=== PATIENT | female | born 1995 | race African-American/Black ===

== ENCOUNTER 2019-11-20 07:51 | Inpatient (IN) ==
[2019-11-20] MEDS ORDERED: OXYTOCIN 30 UNITS/500 ML BAG IV PRN ×2 (08:10→08:54)
--- NOTE | 2019-11-20 08:14 | History & Physical Report ---
Date of Service November 20, 2019 Assessment & Plan (1) Elective induction of labor planned: 24 yo F presenting for IOL at 39 weeks for IUGR. Doing well and without complaints today. - Labor plan includes with epidural, anesthesia consult placed. - Pt is GBS negative. - For augmentation of labor with Guillen bulb, Pitocin, likely ROM later today. (2) IUGR (intrauterine growth restriction) affecting care of mother: - As above. (3) Epilepsy affecting : - patient without seizures for 10 years without epileptic medications. - continue to monitor while laboring. History of Present Illness Chief Complaint: induction of labor Primary Care Provider: LISANDRO PCP Guera is a 24 yo ; EDC 11/27/2019; for induction of labor today for IUGR. Patient has a history of ovarian cyst, last largest measured 6.6 cm but this was spontaneous. Also with a history of epilepsy but has not been on medications nor had a seizure in 10 years. Complications with IUGR this , MFM consulted and pt was TORCH/cfDNA negative. Last DVP/UAD within normal limits. Reports intermittent, non-timeable contractions for about 40 minutes overnight, confirms movement; no fluid loss; no vaginal bleeding. Was unable to receive Guillen bulb yesterday PM due to L+D being full. Labor plan includes epidural but would like to "hold off" as soon as possible. Labs: Blood type: O+ Antibody screen: negative Hgb: 10.5 Hct: 32.8% WBC: 5.77 Plt: 249 Rubella status: immune VDLR/RPR: non-reactive Gonorrhea: negative Chlamydia: negative HIV: negative GBS: negative HbSAg: negative Glucose tolerance test x2: normal Allergies Allergy/AdvReac Type Severity Reaction Status Date / Time No Known Allergies Allergy Verified 11/19/19 14:39 Home Medications Home Medications Medication Instructions Recorded Confirmed Type prenat.vits,jaxson,heb-acnk-glwlr 1 tab PO DAILY 04/12/19 11/20/19 History Patient History Medical History Encounter for supervision of normal in multigravida, antepartum Epilepsy History of chicken pox History of umbilical hernia Polyhydramnios affecting Surgical History S/P tonsillectomy S/P wisdom tooth extraction Family History Grandfather (Maternal) Diabetes Hypertension Mother Diabetes Social History Preferred Language: Kinyarwanda Communication Ability: Effective [employer] Internship Required: No Beliefs That Will Affect Care: None marital status: marital status details: Jarvis Heath (24) [phone] Current Living Situation: Family Current Living Situation Comment: Lives with and 3 year old son Jacob current occupational status: unemployed Other Information That Helps Us Care for You: No Feels Safe at Home: Yes Safety Concerns: Feels Safe At This Time Smoking Status: Never smoker Do You Dip or Chew Tobacco: No ; Second Hand Exposure: No ; Tobacco Cessation Education Requested by Patient: No Hx Alcohol Use: No Hx Substance Use: No Review of Systems Constitutional: denies fever, chills, sweats, headache Respiratory: denies SOB, difficulty breathing Cardiac: denies CP, chest palpitations, chest pressure Breast: denies breast pain : denies dysuria Physical Exam Physical Exam: General: patient is alert and oriented, in NAD Cardiac: +S1/S2, no murmurs rubs or gallops Respiratory: lungs CTA b/l, anteriorly and posteriorly, no wheezes rales or rhonchi, no increased work of breathing, symmetric chest rise, no respiratory distress Abdomen: Gravid, fundal height is term, + FHTs, baby is presenting vertex, no palpable contractions, EFW 6-7 lbs Uterus: uterine fundus firm Lower Extremities: no LE edema or swelling, no deep calf pain, Demetrio's sign negative b/l Genitourinary: Manual OB Exam: + cervical dilation fingertip, + cervical effacement (long) and + station high OB Exam Monitor Tracing: + external FHT monitor used, + external uterine monitor used and + normal FHT variability Monitoring External Monitor HR 150s with good variability Tocodynamometer no timeable contractions Supervising Physician Co-Signing Physician Notes Resident Physician Supervision Note: I was present with Dr. Jade during the history and exam. I discussed the case with the resident and agree with the findings and plan as documented in the note. Any exceptions or clarifications are listed here: 24yo with planned induction for h/o IUGR at 39wks today. Testing in office has been good. No evidence of labor. Unfavorable cx at term. RHpos, RI, GBS neg. EFW 10% at last us on 10/29/19(AC% 3). EFW today 6-7#. She did see MFM in this for consult. Please see labor progress note for guillen ripening procedure note. Will plan pitocin for induction as well. bedside us confirms cephalic presentation. sve ft/l/high/post/med. FHTs categ 1. Documented By: Justina Ren MD, FACOG Resident Activity Tracking Resident Involvement: Resident Care Provided Care Provided: OB Delivery (1) Epilepsy affecting Trimester: unspecified trimester Qualified Code(s): O99.350 - Diseases of the nervous system complicating , unspecified trimester; G40.909 - Epilepsy, unspecified, not intractable, without status epilepticus (2) IUGR (intrauterine growth restriction) affecting care of mother Fetus number: single or unspecified fetus Trimester: unspecified trimester Qualified Code(s): O36.5990 - Maternal care for other known or suspected poor growth, unspecified trimester, not applicable or unspecified
[2019-11-20 08:29] LABS: Hematocrit (blood only) 32.8 % (37-47); Hemoglobin 10.5 g/dL (12.0-16.0); Mean Corpuscular Hemoglobin 24.2 pg (25-34); Mean Corpuscular Volume 75.6 fL (80-100); Platelet Count 249 K/uL (130-400); RDW Coefficient of Variation 16.3 % (11.5-14.5); RDW Standard Deviation 44.8 fL (36.4-46.3); Red Blood Count 4.34 M/uL (4.2-5.4); White Blood Count 5.77 K/uL (4.8-10.8)
[2019-11-20] MEDS: LACTATED RINGER'S 1,000 ML IV PRN ×2 (09:13→13:50)
--- NOTE | 2019-11-20 09:28 | Labor Progress Brief Note ---
Date of Service November 20, 2019 Subjective This is procedure note for guillen ripening balloon Assessment & Plan (1) IUGR (intrauterine growth restriction) affecting care of mother: Fetus number: single or unspecified fetus Trimester: unspecified trimester Qualified Code(s): O36.5990 - Maternal care for other known or suspected poor growth, unspecified trimester, not applicable or unspecified (2) 39 weeks gestation of : (3) Unfavorable cervix in term : (4) Encounter for induction of labor: guillen ripening balloon placed after informed consult for mechanical dilation with plannd induction for IUGR. Physical Exam Constitutional: WD/WN, vitals as above Genitourinary: OB Exam Abdomen: + estimated weight (6-7# cephalic by us) Manual OB Exam: + cervical dilation fingertip, + cervical effacement (long) and + station (high) OB Exam Monitor Tracing: + external FHT monitor used (150, mod variability, reactive), + external uterine monitor used (no regular ctx. ) and + category I PROCEDURE: spec placed after informed consent obtained. cx grasped on ant lip with ring forcep. guillen through os and balloon inflated with 40cc sterile water. spec removed. guillen taped to leg on traction. pt mahamed well. Results & Data Vital Signs (Past 12 Hours) Vital Signs Temp Pulse Resp BP 11/20/19 08:23 99.1 F 117 H 18 119/61 11/20/19 08:14 117 H 119/61 11/20/19 08:12 123 H 117/63 Coding Level of Care Code None Diagnoses IUGR (intrauterine growth restriction) affecting care of mother O36.5990 Fetus number: single or unspecified fetus Trimester: unspecified trimester 39 weeks gestation of Z3A.39 Unfavorable cervix in term O34.40 Encounter for induction of labor Z34.90 CPT Codes Guillen Bulb Placement for Cervical Ripening - [id number] ([id number])
--- NOTE | 2019-11-20 12:47 | Labor Progress Brief Note ---
Date of Service November 20, 2019 Subjective Reason For Note: Routine Evaluation pt feeling contractions. considering epidural Assessment & Plan (1) 39 weeks gestation of : (2) IUGR (intrauterine growth restriction) affecting care of mother: Fetus number: single or unspecified fetus Trimester: unspecified trimester Qualified Code(s): O36.5990 - Maternal care for other known or suspected poor growth, unspecified trimester, not applicable or unspecified (3) Encounter for induction of labor: cannot even examine pt, very intolerant of exams, brings knees tightly together and cannot tolerate even touching introitus. asked what we could do to help. offered epidural now given that is her ultimate plan and she agrees to get now. will plan exam after hopefully more comfortable. Physical Exam Constitutional: WD/WN, vitals as above Neurologic: grossly normal Psychiatric: A+Ox3, euthymic affect Genitourinary: Manual OB Exam: + cervical dilation (unable to tolerate exam, can't even advance fingers past introitus) OB Exam Monitor Tracing: + external FHT monitor used (135 mod variability), + external uterine monitor used (q2-3 pit @11), + category I and + normal FHT variability Results & Data Vital Signs (Past 12 Hours) Vital Signs Temp Pulse Resp BP 11/20/19 12:00 72 107/73 11/20/19 08:23 99.1 F 117 H 18 119/61 11/20/19 08:14 117 H 119/61 11/20/19 08:12 123 H 117/63 Coding Level of Care Code None Diagnoses 39 weeks gestation of Z3A.39 IUGR (intrauterine growth restriction) affecting care of mother O36.5990 Fetus number: single or unspecified fetus Trimester: unspecified trimester Encounter for induction of labor Z34.90
[2019-11-20] MEDS ORDERED: BUPIVACAINE 0.25% 30 ML VIAL ONE (12:53)
[2019-11-20] MEDS ORDERED: ePHEDrine sulfate 50 MG/ML AMP ONE (12:53)
[2019-11-20] MEDS ORDERED: fentaNYL citrate 100 MCG/2 ML VIAL ONE (12:54)
[2019-11-20] MEDS ORDERED: fentaNYL 2MCG/ML ROPIV 1.25MG/ML 100 ML BAG EPI ONE (12:54)
--- NOTE | 2019-11-20 13:02 | Anesthesiology Consultation ---
Date of Service November 20, 2019 Assessment & Plan Chart Review Chart Review: Patient NOT seen in Pre Admission Testing and Acceptable Risk for Labor Epidural Consults Requested none ASA ASA2 Proposed Anesthesia Anesthesia Type: Labor Epidural Risk / Benefits Reviewed With: PT / POA / Parent / Guardian, Accepts Plan and Informed Consent Obtained History Height/Weight Height: 5 ft Weight: 92.986 kg Allergies Allergy/AdvReac Type Severity Reaction Status Date / Time No Known Allergies Allergy Verified 11/19/19 14:39 Medications Home Medications Medication Instructions Recorded Confirmed Last Taken prenat.vits,jaxson,byf-xqwc-qjwxz 1 tab PO DAILY 04/12/19 11/20/19 Unknown Active Medications Generic Name Dose Route Start Last Admin Trade Name Freq PRN Reason Stop Dose Admin Lactated Ringer's 1,000 mls @ 125 mls/hr 11/20/19 08:10 11/20/19 12:43 Lr IV 11/22/19 08:09 999 mls/hr .Q8H PRN Infusion L&D Protocol Protocol Oxytocin 30 units in 500 mls @ 11 mls/hr 11/20/19 08:54 11/20/19 12:15 Pitocin IV 11/22/19 08:53 0.66 units/hr .Q24H PRN 11 mls/hr Labor Induction/Augmentation Titration Protocol 0.66 UNITS/HR NPO Date Last Intake of Fluids: 11/20/19 Time Last Intake of Fluids: 13:13 Date Last Intake of Solids: 11/20/19 Time Last Intake of Solids: 06:30 Past Medical History Medical History Epilepsy History of chicken pox History of umbilical hernia Exercise / Class Metabolic Activity II 4-5 Yardwork/Stairs/Walk up hill Past Family History Family History Grandfather (Maternal) Diabetes Hypertension Mother Diabetes Past Surgical History Surgical History S/P tonsillectomy S/P wisdom tooth extraction Past Anesthesia History No Hx of Anesthesia Complications History of PONV No Hx of PONV Social History Smoking Status: Never smoker Do You Dip or Chew Tobacco: No Hx Alcohol Use: No Hx Substance Use: No Review of Systems Patient denies history of abnormal bleeding or bleeding disorder. Patient denies active use of anticoagulants other than low dose aspirin. Negative for chest pain or shortness of breath. Patient denies numbness, tingling or weakness in lower extremities. Physical Exam Vital Signs Last Vital Signs Temp 37.3 C 11/20/19 08:23 Pulse 82 11/20/19 13:14 Resp 18 11/20/19 08:23 BP 122/80 11/20/19 13:14 Pulse Ox 100 11/20/19 13:14 Constitutional not obese gravid uterus ENMT Mouth: no TMJ abnormality and oral opening not small Thyromental Distance: > or= 3.5 Finger Breadths Mallampati Class: III Neck normal visual inspection; neck extension not limited Respiratory normal respiratory effort Auscultation: lungs clear to auscultation bilaterally Cardiovascular Rate/Rhythm: regular rate and regular rhythm Heart Sounds: no murmur Neurologic moves all extremities Psychiatric Orientation: alert and oriented x 3 Testing Laboratory Results 11/20/19 08:19
[2019-11-20] MEDS ORDERED: ONDANSETRON INJ 2 MG/ML 2 ML VIAL IV PRN ×3 (13:57→18:54)
[2019-11-20] MEDS ORDERED: NALOXONE HCL 1 MG in SODIUM CHLORIDE 0.9% 1000ML 1,000 ML IV PRN ×2 (13:57→18:45)
[2019-11-20] MEDS ORDERED: ePHEDrine sulfate 50 MG/ML AMP IV PRN ×2 (13:57→18:45)
[2019-11-20] MEDS ORDERED: NALOXONE HCL 0.4 MG/1 ML VIAL/CARP IV PRN ×2 (13:57→18:45)
[2019-11-20] MEDS ORDERED: NALBUPHINE HCL INJ 10 MG/ML AMP IV PRN ×2 (13:57→18:45)
[2019-11-20] MEDS ORDERED: DiphenhydrAMINE HCL 50 MG/ML VIAL IV PRN (13:57)
[2019-11-20] MEDS ORDERED: fentaNYL 2MCG/ML ROPIV 1.25MG/ML 100 ML BAG EPI PRN (13:57)
--- NOTE | 2019-11-20 14:20 | Labor Progress Brief Note ---
Date of Service November 20, 2019 Subjective Reason For Note: Routine Evaluation now comfortable with epidural. guillen balloon fell out about 130pm Assessment & Plan (1) 39 weeks gestation of : (2) Encounter for induction of labor: (3) IUGR (intrauterine growth restriction) affecting care of mother: need to cont to increase pitocin to keep pattern regular. station too high to attempt arom, will see how that improves with time, may need to consider needle arom eventually but feel we can improve pattern as option first with better titration of pitocin. fetus categ 1. if srom, needs cx check by nursing kathya, nursing made aware. pt and partner aware of findings and plan and deny further questions. Fetus number: single or unspecified fetus Trimester: unspecified trimester Qualified Code(s): O36.5990 - Maternal care for other known or suspected poor growth, unspecified trimester, not applicable or unspecified Physical Exam Constitutional: WD/WN, vitals as above Psychiatric: A+Ox3, euthymic affect Genitourinary: Manual OB Exam: + cervical dilation 4 cm, + cervical effacement 50% and + station high OB Exam Monitor Tracing: + external FHT monitor used (130 mod variability reactive .), + external uterine monitor used (q1-4, pit at 13), + category I and + normal FHT variability Results & Data Vital Signs (Past 12 Hours) Vital Signs Temp Pulse Resp BP Pulse Ox 11/20/19 14:14 92 H 99 11/20/19 14:13 91 H 107/64 11/20/19 14:09 88 99 11/20/19 14:08 88 104/66 11/20/19 14:06 96 H 103/64 11/20/19 14:04 102 H 107/62 99 11/20/19 14:02 77 109/62 11/20/19 14:00 100 H 107/71 11/20/19 13:59 97 H 100 11/20/19 13:58 91 H 102/60 11/20/19 13:56 88 111/65 11/20/19 13:54 85 104/57 L 99 11/20/19 13:52 92 H 111/68 11/20/19 13:50 96 H 112/64 11/20/19 13:49 84 99 11/20/19 13:48 96 H 111/68 11/20/19 13:46 94 H 114/72 11/20/19 13:44 115 H 116/64 99 11/20/19 13:42 99 H 123/74 11/20/19 13:40 87 125/73 11/20/19 13:39 90 98 11/20/19 13:38 100 H 108/77 11/20/19 13:36 93 H 118/77 11/20/19 13:34 81 117/69 99 11/20/19 13:32 90 115/69 11/20/19 13:29 81 99 11/20/19 13:28 90 122/75 11/20/19 13:26 103 H 127/81 11/20/19 13:24 95 H 120/80 99 11/20/19 13:22 98 H 129/82 11/20/19 13:20 86 119/84 11/20/19 13:19 91 H 99 11/20/19 13:14 82 122/80 100 11/20/19 12:00 72 107/73 11/20/19 08:23 99.1 F 117 H 18 119/61 11/20/19 08:14 117 H 119/61 11/20/19 08:12 123 H 117/63 Coding Level of Care Code None Diagnoses 39 weeks gestation of Z3A.39 Encounter for induction of labor Z34.90 IUGR (intrauterine growth restriction) affecting care of mother O36.5990 Fetus number: single or unspecified fetus Trimester: unspecified trimester
[2019-11-20] MEDS ORDERED: LIDOCAINE/EPINEPHRINE 2% 1:200,000 20 ML SDV ONE (17:20)
[2019-11-20] MEDS ORDERED: OXYTOCIN 10 UNITS/ML VIAL ONE ×2 (17:22→18:29)
[2019-11-20] MEDS ORDERED: MoRPHine SULFATE PF 1 MG/ML 10 ML AMP/VIAL ONE (17:22)
--- NOTE | 2019-11-20 17:25 | Labor Progress Brief Note ---
Date of Service November 20, 2019 Subjective Reason For Note: Routine Evaluation pt comfortable, pit at 19 Assessment & Plan (1) 39 weeks gestation of : (2) IUGR (intrauterine growth restriction) affecting care of mother: Fetus number: single or unspecified fetus Trimester: unspecified trimester Qualified Code(s): O36.5990 - Maternal care for other known or suspected poor growth, unspecified trimester, not applicable or unspecified (3) Encounter for induction of labor: (4) malpresentation: cephalic by u/s yest and again today. now breech, despite pitocin which was used to try to bring cephalic into pelvis. I am concerned for srom and need for emergency c/s. rec c/s now. partner and pt discussed and asked about delaying surgery. i do not recommend as would be controlled right now but if srom, then risk for cord prolapse and compromise or . rec moving toward c/s kathya and pt and partner agree. consent reviewed and signed. or and peds notified. Physical Exam Constitutional: WD/WN, vitals as above Genitourinary: Manual OB Exam: + cervical dilation 4 cm, + cervical effacement 80% and + station high OB Exam Monitor Tracing: + external FHT monitor used (130 mod variability), + external uterine monitor used (q2-3), + category I and + normal FHT variability presenting part not palpable. bedside us now with breech presentation, pit stopped. Results & Data Vital Signs (Past 12 Hours) Vital Signs Temp Pulse Resp BP Pulse Ox 11/20/19 17:19 88 100 11/20/19 17:18 90 116/82 11/20/19 17:14 83 99 11/20/19 17:09 89 99 11/20/19 17:04 79 98 11/20/19 16:59 79 96/55 L 99 11/20/19 16:54 84 132/56 L 98 11/20/19 16:49 86 98 11/20/19 16:48 81 101/59 L 11/20/19 16:44 89 99 11/20/19 16:43 90 98/63 L 11/20/19 16:39 90 101/59 L 99 11/20/19 16:34 78 104/65 99 11/20/19 16:29 85 99 11/20/19 16:28 80 98/64 L 11/20/19 16:24 88 99 11/20/19 16:23 75 103/66 11/20/19 16:19 76 114/57 L 98 11/20/19 16:16 82 110/71 11/20/19 16:14 80 99 11/20/19 16:09 80 98 11/20/19 16:04 77 101/62 99 11/20/19 15:59 98 H 99 11/20/19 15:58 86 113/72 11/20/19 15:54 98 H 99 11/20/19 15:49 81 98 11/20/19 15:48 75 105/60 11/20/19 15:45 95 H 95/61 L 11/20/19 15:44 91 H 99 11/20/19 15:40 86 101/57 L 11/20/19 15:39 88 99 11/20/19 15:34 89 98/54 L 99 11/20/19 15:29 82 117/61 99 11/20/19 15:24 84 98 11/20/19 15:23 85 97/58 L 11/20/19 15:20 82 93/56 L 11/20/19 15:19 83 98 11/20/19 15:14 71 97 11/20/19 15:13 86 95/57 L 11/20/19 15:09 89 97/55 L 98 11/20/19 15:04 74 18 93/59 L 98 11/20/19 14:59 82 98 11/20/19 14:58 78 93/59 L 11/20/19 14:54 72 97 11/20/19 14:53 88 96/64 L 11/20/19 14:49 70 18 99/61 L 98 11/20/19 14:44 86 98 11/20/19 14:43 90 100/60 11/20/19 14:40 72 102/55 L 11/20/19 14:39 74 98 11/20/19 14:34 96 H 18 98/54 L 99 11/20/19 14:29 74 98 11/20/19 14:28 82 101/66 11/20/19 14:24 85 99 11/20/19 14:23 96 H 100/64 11/20/19 14:19 77 16 95/53 L 99 11/20/19 14:14 92 H 99 11/20/19 14:13 91 H 107/64 11/20/19 14:09 88 99 11/20/19 14:08 88 18 104/66 11/20/19 14:06 96 H 103/64 11/20/19 14:04 102 H 107/62 99 11/20/19 14:02 77 18 109/62 11/20/19 14:00 100 H 107/71 11/20/19 13:59 97 H 100 11/20/19 13:58 91 H 102/60 11/20/19 13:56 88 18 111/65 11/20/19 13:54 85 104/57 L 99 11/20/19 13:52 92 H 111/68 11/20/19 13:50 96 H 112/64 11/20/19 13:49 84 99 11/20/19 13:48 96 H 111/68 11/20/19 13:46 94 H 114/72 11/20/19 13:44 115 H 116/64 99 11/20/19 13:42 99 H 123/74 11/20/19 13:40 87 125/73 11/20/19 13:39 90 98 11/20/19 13:38 100 H 108/77 11/20/19 13:36 93 H 118/77 11/20/19 13:34 81 117/69 99 11/20/19 13:32 90 115/69 11/20/19 13:29 81 99 11/20/19 13:28 90 122/75 11/20/19 13:26 103 H 127/81 11/20/19 13:24 95 H 120/80 99 11/20/19 13:22 98 H 129/82 11/20/19 13:20 86 119/84 11/20/19 13:19 91 H 99 11/20/19 13:14 97.5 F L 82 18 122/80 100 11/20/19 12:00 72 107/73 11/20/19 08:23 99.1 F 117 H 18 119/61 11/20/19 08:14 117 H 119/61 11/20/19 08:12 123 H 117/63 Coding Level of Care Code None Diagnoses 39 weeks gestation of Z3A.39 IUGR (intrauterine growth restriction) affecting care of mother O36.5990 Fetus number: single or unspecified fetus Trimester: unspecified trimester Encounter for induction of labor Z34.90 malpresentation O32.9XX0
[2019-11-20] MEDS ORDERED: LACTATED RINGER'S 1,000 ML IV SCH ×2 (17:30→19:00)
[2019-11-20] MEDS ORDERED: CEFAZOLIN 2000MG 2,000 MG/15 ML SYR IV ONE (17:30)
[2019-11-20] MEDS ORDERED: CITRIC ACID/SODIUM CITRATE 15 ML UDC PO SCH (17:45)
[2019-11-20] MEDS ORDERED: ONDANSETRON INJ 2 MG/ML 2 ML VIAL ONE (18:21)
[2019-11-20] MEDS ORDERED: SODIUM CHLORIDE 0.9% INJ 10 ML VIAL ONE (18:29)
[2019-11-20 18:45] LABS: Base Excess Cord Arterial Bld -2.4 mEq/L (-9-1.8); CO2 Cord Arterial Blood 50 mmHg (39.1-73.5); HCO3 Cord Arterial Blood 24 mmol/L (19.7-28.5); PO2 Cord Arterial Blood 24 mmHg (4.1-31.7)
[2019-11-20] MEDS ORDERED: NO NARCOTICS OR SEDATIVES SCH (18:45)
[2019-11-20] MEDS ORDERED: NALOXONE HCL 0.08 MG in SYRINGE 1.8 ML IV PRN (18:45)
[2019-11-20] MEDS ORDERED: SODIUM CHLORIDE 0.9% 1000ML 1,000 ML IV SCH (18:45)
[2019-11-20] MEDS ORDERED: ACETAMINOPHEN 1000 MG/100 ML IV IV PRN (18:45)
[2019-11-20] MEDS ORDERED: HYDROmorphone INJ 0.5 MG/0.5 ML SYR IV PRN (18:45)
[2019-11-20] MEDS ORDERED: LACTATED RINGER'S 500 ML IV PRN (18:45)
[2019-11-20] MEDS ORDERED: MoRPHine SULFATE PF 1 MG/ML 10 ML AMP/VIAL INT SPINAL ONE (18:45)
[2019-11-20] MEDS ORDERED: DC INTRASPINAL MORPHINE SCH (18:45)
[2019-11-20] MEDS ORDERED: ARISTA ABSORBABLE HEMOSTAT 3GM TOP ONE (18:47)
[2019-11-20 18:51] LABS: Base Excess Cord Venous Blood -2.4 mEq/L (-7.7-1.9); Cord Venous Blood HCO3 22 mmol/L (18.4-26.8); Cord Venous Blood PCO2 38 mmHg (30.4-57.2); Cord Venous Blood PO2 35 mmHg (14.1-43.3); Cord Venous Blood pH 7.38 (7.20-7.44)
[2019-11-20 18:52] LABS: Oxygen Sat Cord Arterial Blood < 60.0 % (<60)
--- NOTE | 2019-11-20 18:52 | Post Operative Brief Note ---
PG Immediate Post Op with CF Date of Surgery November 20, 2019 Pre & Post Diagnosis Operation Date: 11/20/19 17:45 Pre-Op Diagnosis: 39 week gestation IUP IUGR. Induction of labor. variable presentation. Post-Op Diagnosis: Same as above. delivery of live male adrian at 1817. I identified the patient and participated in the time-out.: Yes Procedure Operation Date: 11/20/19 17:45 Actual Procedures Primary Low Transverse Section Surgeon Justina Ren MD, FACOG Cloth Finishing Range Operator Chief Maria Guadalupe Estimated Blood Loss 500 Findings Consistent with Post-Op Diagnosis (viable male, delivered double footling breech. normal uterus, tubes and ovaries bilaterally. ) Fluids 1000 Specimens Specimen Description: A: Placenta: exam B: Cord Blood C: Cord gasses Drains Patricio Catheter (draining clear urine durine procedure) Anesthesia Type Labor Epidural Complications none Disposition Accompanied Patient To Recovery: No Disposition: Recovery Room
[2019-11-20] MEDS ORDERED: DIPHTHERIA/TETANUS/PERTUSSIS 0.5 ML SYR/VIAL IM ONE (18:54)
[2019-11-20] MEDS ORDERED: PROMETHAZINE HCL 25 MG in SODIUM CHLORIDE 0.9% 50 ML IV PRN (18:54)
[2019-11-20] MEDS ORDERED: BENZOCAINE 20% AER SPR 82.5 GM CAN EXT PRN (18:54)
[2019-11-20] MEDS ORDERED: HYDROCORTISONE ACETATE 25 MG SUPP PR PRN (18:54)
[2019-11-20] MEDS ORDERED: ZOLPIDEM TARTRATE 5 MG TAB PO PRN (18:54)
[2019-11-20] MEDS ORDERED: SUPERCREAM 0.870% 15 GM JAR EXT PRN (18:54)
[2019-11-20] MEDS: KETOROLAC 30 MG/ML VIAL IV PRN (19:32)
--- NOTE | 2019-11-20 19:35 | Operative Report ---
PG Post Operative Report Pre & Post Diagnosis Operation Date: 11/20/19 17:45 Pre-Op Diagnosis: 39 week gestation IUP Intrauterine growth restriction. Induction of labor. variable presentation. Post-Op Diagnosis: Same as above. delivery of live male child at 1817. I identified the patient and participated in the time-out.: Yes Procedure Operation Date: 11/20/19 17:45 Actual Procedures Primary Low Transverse Section Surgeon Justina Ren MD, FACOG Appeals Analyst Maria Guadalupe Estimated Blood Loss 500 Findings Consistent with Post-Op Diagnosis (viable male , double footling breech, normal uterus, tubes and ovaries bilaterally) Fluids 1000 Specimens placenta, cord blood, cord gases Drains guillen Anesthesia Type Labor Epidural Complications none Disposition Accompanied Patient To Recovery: No Disposition: L&D Indications 24yo at 39wks ega with iugr admitted today for planned induction. Cervix was unfavorable and presenting part was high and so bedside u/s performed and fetus cephalic. Was cephalic on yesterday's office ultrasound as well. Guillen cervical ripening balloon placed and pitocin begun. Patient quite intolerant of exams and about midday exam attempted but patient could not tolerate and given painful contractions, opted to get her epidural. Soon thereafter guillen had falled out of vagina and as patient was comfortable exam performed with sve 4/50/high. Not able to perform amniotomy due to high station. Pitocin continued and about 2-3hrs later, exam repeated, with pitocin not at 19 milliunits and sve 4/80/high--nothing in pelvis. Opted to recheck presentation by bedside u/s which now showed breech presentation. Pitocin stopped. Patient counseled about concern for variable presentation, dangers of srom and recommendation for section. She agreed and consent reviewed and signed and patient readied for procedure. Description of Procedure The patient was taken to the operating room and identified. Her epidural had been bolused, she was placed in the supine position with a leftward tilt on the operating table and prepped and draped in the usual sterile fashion. A guillen catheter had already been placed. The knife was used to create a Pfannensteil skin incision that was carried down to the underlying layer of fascia. The fascia was nicked in the midline and this opening was extended laterally using Love scissors. The superior and inferior aspect of the fascial incision were tented upward and the underlying rectus muscles were dissected off the overlying fascia both sharply and bluntly using Love scissors. The rectus muscles were bluntly in the midline. The peritoneal cavity was bluntly entered into. This opening was stretched. The bladder blade was placed. The vesicouterine peritoneum was elevated and opened up into and the bladder flap was created digitally and bladder blade was replaced. The knife was used to create a hysterotomy and this opening was stretched. The operators hand was placed through the hysterotomy and the bladder blade was removed. The feet were grasped and brought to the opening to the level of the buttocks. With further fundal pressure the fetus was delivered to the level of the scapulae where the arms were swept across the anterior midline. The head was then flexed and with fundal pressure the head was delivered. The cord was clamped and cut and the was handed off to the awaiting pediatricians. Cord blood and gases were obtained. The placenta was manually expressed. The uterus was exteriorized and cleared of all clots and debris. Dilute IV Pitocin was begun. The uterine tone was improving. The hysterotomy was closed in a running interlocking fashion using 0 Vicryl followed by a second imbricating layer of 0 Vicryl. The hysterotomy was not hemostatic in the midline and therefore figure of eight sutures of 2-0 vicryl were placed and the hemostasis improved. The pelvis was irrigated. The uterus was returned to the abdomen. The gutters were cleared of all clots and debris. The hysterotomy was reinspected and noted to be hemostatic with small oozing. Jeanmarie 3gm was applied and pressure held. The hysterotomy was reinspected and hemostatic after appropriate time given. The fascia was then closed in running fashion using 0 Vicryl. The subcutaneous fat was copiously irrigated and reapproximated using 2-0 chromic. The skin was closed in a subcuticular fashion using 4-0 Vicryl. At this point the procedure was terminated. The patient was transferred to the recovery room in stable condition. All sponge, lap and needle counts are correct x2. I attest to the content of the Intraoperative Record and any orders documented therein. Any exceptions are noted below. OB Procedure charges OB Charges 88162 C/S
--- NOTE | 2019-11-20 20:12 | Anesthesia Procedure Note ---
Date of Service November 20, 2019 Anesthesia Post Epidural Note Vital Signs Vital Signs: Temp Pulse Resp BP Pulse Ox 36.6 C 83 18 106/51 L 100 11/20/19 19:15 11/20/19 20:06 11/20/19 19:35 11/20/19 20:06 11/20/19 20:06 Pain Intensity Lower Abdomen: Pain Intensity: 3 Notes Mental Status: alert / awake / arousable and participated in evaluation Nausea / Vomiting: adequately controlled Pain: adequately controlled Airway Patency, RR, SpO2: stable & adequate BP & HR: stable & adequate Hydration State: stable & adequate Neuraxial Anesthesia: was administered and sensory block is resolving Anesthetic Complications: no major complications apparent and Pt Satisfied with anesthetic care Epidural: Removed without complications and With tip intact Notes: Epidural site clean, dry and intact. No signs of edema, erythema or bruising at insertion site. Pt instructed to request anesthesia if she has residual lower extremity numbness or if she develops lower extremity pain or weakness, back pain or headache.
--- NOTE | 2019-11-20 20:15 | Anesthesiology Progress Note ---
Date of Service November 20, 2019 Anesthesia Post Procedure Vital Signs Vital Signs: Temp Pulse Pulse Resp BP BP Pulse Ox 11/20/19 20:11 88 100 11/20/19 20:06 83 106/51 L 100 11/20/19 20:01 85 100 11/20/19 19:56 95 H 108/55 L 100 11/20/19 19:55 16 11/20/19 19:51 90 100 11/20/19 19:46 98 H 100 11/20/19 19:45 18 11/20/19 19:41 100 H 100 11/20/19 19:37 88 104/60 11/20/19 19:36 88 100 11/20/19 19:35 18 11/20/19 19:31 90 100 11/20/19 19:26 89 97/58 L 100 11/20/19 19:25 18 11/20/19 19:21 100 H 99 11/20/19 19:16 90 95/59 L 99 11/20/19 19:15 36.6 C 88 18 97/61 L 99 11/20/19 19:12 88 95/62 L 11/20/19 19:11 88 97 11/20/19 19:07 93 H 97/61 L 11/20/19 19:06 95 H 99 11/20/19 17:56 97 H 106/69 11/20/19 17:54 98 H 100 11/20/19 17:52 115 H 110/62 11/20/19 17:50 100 H 101/57 L 11/20/19 17:49 97 H 99 11/20/19 17:48 104 H 110/65 11/20/19 17:46 92 H 109/73 11/20/19 17:44 91 H 108/70 99 11/20/19 17:42 107 H 99/62 L 11/20/19 17:40 87 105/67 11/20/19 17:39 88 99 11/20/19 17:34 98 H 99 11/20/19 17:32 82 109/63 11/20/19 17:29 81 99 11/20/19 17:24 89 99 11/20/19 17:19 88 100 11/20/19 17:18 90 116/82 11/20/19 17:14 83 99 11/20/19 17:09 89 99 11/20/19 17:04 79 18 98 11/20/19 16:59 79 96/55 L 99 11/20/19 16:54 84 132/56 L 98 11/20/19 16:49 86 98 11/20/19 16:48 81 101/59 L 11/20/19 16:44 89 99 11/20/19 16:43 90 98/63 L 11/20/19 16:39 90 101/59 L 99 11/20/19 16:34 78 104/65 99 11/20/19 16:29 85 99 11/20/19 16:28 80 98/64 L 11/20/19 16:24 88 99 11/20/19 16:23 75 103/66 11/20/19 16:19 76 114/57 L 98 11/20/19 16:16 82 110/71 11/20/19 16:14 80 99 11/20/19 16:09 80 98 11/20/19 16:04 77 20 101/62 99 11/20/19 15:59 98 H 99 11/20/19 15:58 86 113/72 11/20/19 15:54 98 H 99 11/20/19 15:49 81 98 11/20/19 15:48 75 105/60 11/20/19 15:45 95 H 95/61 L 11/20/19 15:44 91 H 99 11/20/19 15:40 86 101/57 L 11/20/19 15:39 88 99 11/20/19 15:34 89 98/54 L 99 11/20/19 15:29 82 117/61 99 11/20/19 15:24 84 98 11/20/19 15:23 85 97/58 L 11/20/19 15:20 82 93/56 L 11/20/19 15:19 83 98 11/20/19 15:14 71 97 11/20/19 15:13 86 95/57 L 11/20/19 15:09 89 97/55 L 98 11/20/19 15:04 74 18 93/59 L 98 11/20/19 14:59 82 98 11/20/19 14:58 78 93/59 L 11/20/19 14:54 72 97 11/20/19 14:53 88 96/64 L 11/20/19 14:49 70 18 99/61 L 98 06/03/20 14:44 86 98 11/20/19 14:43 90 100/60 11/20/19 14:40 72 102/55 L 11/20/19 14:39 74 98 11/20/19 14:34 96 H 18 98/54 L 99 11/20/19 14:29 74 98 11/20/19 14:28 82 101/66 11/20/19 14:24 85 99 11/20/19 14:23 96 H 100/64 11/20/19 14:19 77 16 95/53 L 99 11/20/19 14:14 92 H 99 11/20/19 14:13 91 H 107/64 11/20/19 14:09 88 99 11/20/19 14:08 88 18 104/66 11/20/19 14:06 96 H 103/64 11/20/19 14:04 102 H 107/62 99 11/20/19 14:02 77 18 109/62 11/20/19 14:00 100 H 107/71 11/20/19 13:59 97 H 100 11/20/19 13:58 91 H 102/60 11/20/19 13:56 88 18 111/65 11/20/19 13:54 85 104/57 L 99 11/20/19 13:52 92 H 111/68 11/20/19 13:50 96 H 112/64 11/20/19 13:49 84 99 11/20/19 13:48 96 H 111/68 11/20/19 13:46 94 H 114/72 11/20/19 13:44 115 H 116/64 99 11/20/19 13:42 99 H 123/74 11/20/19 13:40 87 125/73 11/20/19 13:39 90 98 11/20/19 13:38 100 H 108/77 11/20/19 13:36 93 H 118/77 11/20/19 13:34 81 117/69 99 11/20/19 13:32 90 115/69 11/20/19 13:29 81 99 11/20/19 13:28 90 122/75 11/20/19 13:26 103 H 127/81 11/20/19 13:24 95 H 120/80 99 11/20/19 13:22 98 H 129/82 11/20/19 13:20 86 119/84 11/20/19 13:19 91 H 99 11/20/19 13:14 36.4 C L 82 18 122/80 100 11/20/19 12:00 72 107/73 11/20/19 08:23 37.3 C 117 H 18 119/61 11/20/19 08:14 117 H 119/61 11/20/19 08:12 123 H 117/63 Pain Intensity Lower Abdomen: Pain Intensity: 3 Transfer of Care Handoff Completed per policy Notes Mental Status: alert / awake / arousable and participated in evaluation Nausea / Vomiting: adequately controlled Pain: adequately controlled Airway Patency, RR, SpO2: stable & adequate BP & HR: stable & adequate Hydration State: stable & adequate Neuraxial Anesthesia: was administered and sensory block is resolving Anesthetic Complications: no major complications apparent and Pt Satisfied with anesthetic care
[2019-11-20] MEDS: OXYTOCIN 20 UNITS in LACTATED RINGER'S 1,000 ML IV SCH (20:30)
[2019-11-20] MEDS: DiphenhydrAMINE HCL 50 MG/ML VIAL IV PRN (22:30)
[2019-11-21] MEDS: SIMETHICONE 80 MG CHEW PO SCH ×5 (00:58→21:23)
[2019-11-21] MEDS: DOCUSATE SODIUM 100 MG CAP PO SCH ×3 (00:58→21:23)
[2019-11-21] MEDS: DiphenhydrAMINE HCL 50 MG/ML VIAL IV PRN (04:59)
[2019-11-21] MEDS: OXYTOCIN 20 UNITS in LACTATED RINGER'S 1,000 ML IV SCH (04:59)
[2019-11-21] MEDS ORDERED: CITRIC ACID/SODIUM CITRATE 15 ML UDC PO SCH (06:00)
--- NOTE | 2019-11-21 06:09 | Obstetrical Progress Note ---
Date of Service November 21, 2019 Subjective _ is a _ yo female G_P_; POD # _ following section delivery at _weeks; doing well this AM; _ abdominal cramping/pain; voiding _well, _passing gas but no BM; tolerating meals overnight, able to ambulate some within the room. Some persistent spotting this morning but improved from yesterday. 24 Hour I/Os: Intake: Output: Review of Systems Constitutional: denies fever, chills, sweats, headache Respiratory: denies SOB, difficulty breathing Cardiac: denies CP, chest palpitations, chest pressure Breast: denies breast pain : denies dysuria Physical Exam General: patient is alert and oriented, in NAD Cardiac: +S1/S2, no murmurs rubs or gallops Respiratory: lungs CTA b/l, anteriorly and posteriorly, no wheezes rales or rhonchi, no increased work of breathing, symmetric chest rise, no respiratory distress Abdomen: soft, NT, +bowel sounds Uterus: uterine fundus firm, palpable _cm below the umbilicus. Incision intact, non-tender, non-erythematous, no weeping from incision site Lower Extremities: no LE edema or swelling, no deep calf pain, Demetrio's sign negative b/l Results & Data Vital Signs (Past 12 Hours) Vital Signs Temp Pulse Pulse Resp BP BP Pulse Ox 11/21/19 05:10 18 97 11/21/19 04:05 18 98 11/21/19 03:55 37.2 C 92 H 18 120/73 11/21/19 03:30 18 97 11/21/19 02:00 16 98 11/21/19 01:05 16 98 11/21/19 00:30 18 100 11/20/19 23:00 92 H 18 120/80 100 11/20/19 22:30 18 100 11/20/19 21:50 36.7 C 92 H 18 116/76 100 11/20/19 21:41 84 100 11/20/19 21:36 89 100 11/20/19 21:31 90 100 11/20/19 21:28 83 88 L 11/20/19 21:26 84 100 11/20/19 21:21 86 100 11/20/19 21:18 78 110/69 11/20/19 21:16 88 88 L 11/20/19 21:15 18 11/20/19 21:11 92 H 100 11/20/19 21:06 82 100 11/20/19 21:02 75 91 11/20/19 21:01 70 100 11/20/19 20:56 74 100 11/20/19 20:51 73 100 11/20/19 20:47 74 104/63 11/20/19 20:46 78 100 11/20/19 20:45 18 11/20/19 20:42 86 90 11/20/19 20:41 85 98 11/20/19 20:37 80 91 11/20/19 20:36 80 100 11/20/19 20:31 80 100 11/20/19 20:26 76 98 11/20/19 20:24 82 92 11/20/19 20:21 82 100 11/20/19 20:18 82 89 L 11/20/19 20:16 84 97/60 L 100 11/20/19 20:15 36.9 C 18 11/20/19 20:11 88 100 11/20/19 20:06 83 106/51 L 100 11/20/19 20:05 16 11/20/19 20:01 85 100 11/20/19 19:56 95 H 108/55 L 100 11/20/19 19:55 16 11/20/19 19:51 90 100 11/20/19 19:46 98 H 100 11/20/19 19:45 18 11/20/19 19:41 100 H 100 11/20/19 19:37 88 104/60 11/20/19 19:36 88 100 11/20/19 19:35 18 11/20/19 19:31 90 100 11/20/19 19:26 89 97/58 L 100 11/20/19 19:25 18 11/20/19 19:21 100 H 99 11/20/19 19:16 90 95/59 L 99 11/20/19 19:15 36.6 C 88 18 97/61 L 99 11/20/19 19:12 88 95/62 L 11/20/19 19:11 88 97 11/20/19 19:07 93 H 97/61 L 11/20/19 19:06 95 H 99
[2019-11-21 06:54] LABS: Hematocrit (blood only) 30.1 % (37-47); Hemoglobin 9.5 g/dL (12.0-16.0); Immature Granulocytes # (auto) 0.02 K/uL (0.00-0.02); Immature Granulocytes % (auto) 0.2 %; Lymphocytes # (auto) 1.26 K/uL (1.2-3.4); Lymphocytes % (auto) 14.7 %; Mean Corpuscular Hemoglobin 23.8 pg (25-34); Mean Corpuscular Hgb Conc 31.6 g/dL (32-36); Mean Corpuscular Volume 75.3 fL (80-100); Monocytes # (auto) 0.62 K/uL (0.11-0.59); Monocytes % (auto) 7.2 %; Neutrophils # (auto) 6.66 K/uL (1.4-6.5); Neutrophils % (auto) 77.9 %; Platelet Count 230 K/uL (130-400); RDW Coefficient of Variation 16.1 % (11.5-14.5); RDW Standard Deviation 44.4 fL (36.4-46.3); White Blood Count 8.56 K/uL (4.8-10.8)
--- NOTE | 2019-11-21 06:55 | Obstetrical Progress Note ---
Date of Service November 21, 2019 Assessment & Plan (1) S/P primary low transverse : (2) malpresentation: (3) IUGR (intrauterine growth restriction) affecting care of mother: stable postop. routine care. adv diet, guillen out when ordersup and await spont void. ambulate. given flatus can try po. Fetus number: single or unspecified fetus Trimester: unspecified trimester Qualified Code(s): O36.5990 - Maternal care for other known or suspected poor growth, unspecified trimester, not applicable or unspecified Day #:: 1 Subjective Voiding: guillen catheter in place Passing Gas:: Yes Diet Tolerance:: clear liquids Lochia:: Small Feeding Type:: breast feeding says she was vomiting overnight. even water. she denies pain issues. itchy and had benadryl. trying to feed baby but he is sleepy. does not feel hungry but passing gas. Physical Exam Constitutional WD/WN, vitals as above Respiratory normal respiratory effort, lungs clear to auscultation Cardiovascular Rate/Rhythm: regular rate and regular rhythm Gastrointestinal (Abdomen) Inspection/Auscultation: abdomen normal to inspection and + abdominal surgical incision (c/d/i) Percussion/Palpation: abdomen soft; abdomen nontender Fundus firm 1cm down Musculoskeletal nt calves tr edema Neurologic grossly normal Psychiatric A+Ox3, euthymic affect Results & Data Vital Signs (Past 12 Hours) Vital Signs Temp Pulse Pulse Resp BP BP Pulse Ox 11/21/19 06:15 16 98 11/21/19 05:10 18 97 11/21/19 04:05 18 98 11/21/19 03:55 99.0 F 92 H 18 120/73 11/21/19 03:30 18 97 11/21/19 02:00 16 98 11/21/19 01:05 16 98 11/21/19 00:30 18 100 11/20/19 23:00 92 H 18 120/80 100 11/20/19 22:30 18 100 11/20/19 21:50 98.1 F 92 H 18 116/76 100 11/20/19 21:41 84 100 11/20/19 21:36 89 100 11/20/19 21:31 90 100 11/20/19 21:28 83 88 L 11/20/19 21:26 84 100 11/20/19 21:21 86 100 11/20/19 21:18 78 110/69 11/20/19 21:16 88 88 L 11/20/19 21:15 18 11/20/19 21:11 92 H 100 11/20/19 21:06 82 100 11/20/19 21:02 75 91 11/20/19 21:01 70 100 11/20/19 20:56 74 100 11/20/19 20:51 73 100 11/20/19 20:47 74 104/63 11/20/19 20:46 78 100 11/20/19 20:45 18 11/20/19 20:42 86 90 11/20/19 20:41 85 98 11/20/19 20:37 80 91 11/20/19 20:36 80 100 11/20/19 20:31 80 100 11/20/19 20:26 76 98 11/20/19 20:24 82 92 11/20/19 20:21 82 100 11/20/19 20:18 82 89 L 11/20/19 20:16 84 97/60 L 100 11/20/19 20:15 98.4 F 18 11/20/19 20:11 88 100 11/20/19 20:06 83 106/51 L 100 11/20/19 20:05 16 11/20/19 20:01 85 100 11/20/19 19:56 95 H 108/55 L 100 11/20/19 19:55 16 11/20/19 19:51 90 100 11/20/19 19:46 98 H 100 11/20/19 19:45 18 11/20/19 19:41 100 H 100 11/20/19 19:37 88 104/60 11/20/19 19:36 88 100 11/20/19 19:35 18 11/20/19 19:31 90 100 11/20/19 19:26 89 97/58 L 100 11/20/19 19:25 18 11/20/19 19:21 100 H 99 11/20/19 19:16 90 95/59 L 99 11/20/19 19:15 97.9 F 88 18 97/61 L 99 11/20/19 19:12 88 95/62 L 11/20/19 19:11 88 97 11/20/19 19:07 93 H 97/61 L 11/20/19 19:06 95 H 99
[2019-11-21] MEDS: KETOROLAC 30 MG/ML VIAL IV PRN (09:03)
[2019-11-21] MEDS ORDERED: DiphenhydrAMINE HCL 50 MG/ML VIAL IV PRN (12:45)
[2019-11-21] MEDS ORDERED: KETOROLAC 30 MG/ML VIAL IV PRN (12:45)
[2019-11-21] MEDS: IBUPROFEN 600 MG TAB PO PRN ×2 (15:30→21:19)
[2019-11-21] MEDS: OXYCODONE/ACETAMINOPHEN 5mg/325mg TAB PO PRN ×2 (15:31→21:22)
[2019-11-21] MEDS ORDERED: ZOLPIDEM TARTRATE 5 MG TAB PO PRN (21:00)
[2019-11-22] MEDS: OXYCODONE/ACETAMINOPHEN 5mg/325mg TAB PO PRN ×2 (04:27→16:26)
[2019-11-22] MEDS: IBUPROFEN 600 MG TAB PO PRN ×3 (04:27→16:26)
--- NOTE | 2019-11-22 06:02 | Obstetrical Progress Note ---
Date of Service <Taya Jade DO - Last Filed: 11/22/19 06:36> November 22, 2019 Assessment & Plan <Taya Jade DO - Last Filed: 11/22/19 06:36> (1) S/P primary low transverse : - doing well and without complaints today. - continue routine care. - following discharge will have follow up in [address] Ren. Subjective <Taya Jade DO - Last Filed: 11/22/19 06:36> 24 yo female ; POD # 2 following 1' LTCS; doing well this AM; minimal abdominal cramping/pain with ; voiding well, passing gas but no BM; tolerating meals overnight, able to ambulate some within the room. which she says "started going well at 3am today". Her still requires circumcision prior to discharge. Patient reports some pain with going from lying down to sitting, or from sitting to standing up due to her incision. Pain relieved with intermittent pain medication. Review of Systems Constitutional: denies fever, chills, sweats, headache Respiratory: denies SOB, difficulty breathing Cardiac: denies CP, chest palpitations, chest pressure Breast: denies breast pain : denies dysuria Physical Exam <Taya Jade DO - Last Filed: 11/22/19 06:36> General: patient is alert and oriented, in NAD Cardiac: +S1/S2, no murmurs rubs or gallops Respiratory: lungs CTA b/l, anteriorly and posteriorly, no wheezes rales or rhonchi, no increased work of breathing, symmetric chest rise, no respiratory di stress Abdomen: soft, NT, +bowel sounds Uterus: uterine fundus firm, palpable below the umbilicus. Incision intact, non- tender, non-erythematous, no weeping from incision site Lower Extremities: no LE edema or swelling, no deep calf pain, Demetrio's sign negative b/l Results & Data <Taya Jade DO - Last Filed: 11/22/19 06:36> Vital Signs (Past 12 Hours) Vital Signs Temp Pulse Resp BP 11/21/19 23:55 37.2 C 85 18 96/63 L <Nikki Lerma MD - Last Filed: 11/22/19 06:44> Co-Signing Physician Notes I have reviewed the resident's note and examined the patient myself, and agree with the note above. Resident Activity Tracking <Taya Jade, DO - Last Filed: 11/22/19 06:36> Resident Involvement: Resident Care Provided Care Provided: OB Delivery
[2019-11-22 06:07] LABS: Hematocrit (blood only) 27.8 % (37-47); Hemoglobin 8.9 g/dL (12.0-16.0)
[2019-11-22] MEDS: DOCUSATE SODIUM 100 MG CAP PO SCH (10:12)
[2019-11-22] MEDS: SIMETHICONE 80 MG CHEW PO SCH ×2 (10:12→17:22)
--- NOTE | 2019-11-26 15:18 | Discharge Summary ---
Date of Service Date of admission: November 20, 2019 Date of discharge: November 22, 2019 Admission HPI Per Admitting Provider Admission diagnoses 39 week iup IUGR Induction of labor Unfavorable cervix at term Unstable lie Discharge diagnoses: same Discharge Data Consultations 11/20/19 08:10 Consult Anesthesiology Stat Procedures Performed Operation Date: 11/20/19 17:45 Primary Low Transverse Section Hospital Course (1) 39 weeks gestation of : (2) IUGR (intrauterine growth restriction) affecting care of mother: (3) malpresentation: (4) S/P primary low transverse : 24y at 39 wks kaylynn presented to L&D for planned induction for IUGR with unfavorable cervix at term. She had an u/s day prior showing cephalic presentation with normal UAD ratio. She had the u/s repeated at bedside the day of her admission due to very unfavorable exam to confirm cephalic presentation. A guillen ripening balloon was placed and pitocin was begun. The guillen ripening balloon fell out and with subsequent sve's cx dilated to 4cm but no palpable presenting part in pelvis. At one point, u/s repeated and now fetus was breech. At that point rec to patient to proceed with c/s for unstable lie and change of position despite pitocin for at least 8 hours. She agreed. Procedure performed and postop hemoglobin was 8.9. Patient had normal recovery postoperatively and stable to go home on postop day #2. She was given appropriate pain med prescriptions and told to followup in 6wks. She was given instruction both orally and written. Coding Level of Care Code None Diagnoses 39 weeks gestation of Z3A.39 IUGR (intrauterine growth restriction) affecting care of mother O36.5990 Fetus number: single or unspecified fetus Trimester: unspecified trimester malpresentation O32.9XX0 S/P primary low transverse Z98.891
== END 2019-11-22 20:35 | disposition home or self-care (01) | DRG 788 ==
LOC: 4S1 07:51 → 4S2 22:49